=== PATIENT | male | born 1985 | race Caucasian/White ===

== ENCOUNTER 2017-07-29 06:23 | Emergency (ER) | payer SELFPAY ==
[2017-07-29] MEDS: LIDOCAINE 1% (MDV) 10 ML INJ INJ (07:14)
== END 2017-07-29 08:05 | disposition left against medical advice (07) ==
LOC: FTE 06:23
DX: S31.114A Laceration without foreign body of abdominal wall, left lower quadrant without penetration into peritoneal cavity, initial encounter (principal); F17.210 Nicotine dependence, cigarettes, uncomplicated; W26.8XXA Contact with other sharp object(s), not elsewhere classified, initial encounter; Y92.9 Unspecified place or not applicable
CPT/HCPCS: 12001; 99282-25